=== PATIENT | female | born 1970 | race Hispanic/Latino ===

== ENCOUNTER 2021-06-26 05:36 | Observation (INO) | payer BC ==
[2021-06-25 11:21] VITALS: BP 157/73
[2021-06-25 11:28] LABS: BASOPHILS % (AUTO) 0.6 % (0.0-5.0); EOSINOPHILS % (AUTO) 1.1 % (0.0-8.0); HEMATOCRIT 38.5 % (36-48); LYMPHOCYTES % (AUTO) 35.2 % (21.0-51.0); MEAN CORPUSCULAR HEMOGLOBIN 29.9 pg (27.0-33.0); MEAN CORPUSCULAR VOLUME 90.6 fL (79-99); MONOCYTES % (AUTO) 5.5 % (3.0-13.0); NEUTROPHILS % (AUTO) 57.5 % (40.0-77.0); PLATELET COUNT (AUTO) 371 K/uL (130-400); RED BLOOD CELL COUNT(AUTO) 4.25 MIL/uL (4.00-5.50); RED CELL DISTRIBUTION WIDTH 12.5 % (11.0-15.5)
[2021-06-26] VITALS (24 sets, daily range): BP systolic 116–131; BP diastolic 60–73
[~2021-06-26] VITALS: Ht 154.9 cm; Wt 67.0 kg
[~2021-06-26 05:36] MED LIST: LOSA50TA64 PO
[2021-06-26] MEDS: CEFAZOLIN SODIUM 1 GM VIAL IVP SCH ×2 (06:00→07:55)
[2021-06-26] MEDS ORDERED: LIDOCAINE PF 100MG/5ML (2%) SYRINGE 5ML ONE (07:33)
[2021-06-26] MEDS ORDERED: ROCURONIUM 10MG/1ML SYR 10 MG/ML ML ONE (07:33)
[2021-06-26] MEDS ORDERED: PROPOFOL 10 MG/ML 20ML VIAL IV ONE (07:33)
[2021-06-26] MEDS ORDERED: SUCCINYLCHOLINE 200MG/10ML SYR ONE (07:33)
[2021-06-26] MEDS ORDERED: FENTANYL CITRATE PF 50 MCG/1 ML 2ML VIAL ONE (07:34)
[2021-06-26] MEDS ORDERED: EPHEDRINE SULFATE 50 MG/ML AMPULE ONE (08:10)
[2021-06-26] MEDS: LACTATED RINGERS 1000ML 1,000 ML IV SCH ×4 (08:44→13:32)
[2021-06-26] MEDS ORDERED: ONDANSETRON 4MG INJ ONE (09:36)
[2021-06-26] MEDS ORDERED: NEOSTIGMINE 5MG/5ML SYR IV ONE (09:37)
[2021-06-26] MEDS ORDERED: GLYCOPYRROLATE 1 MG/5 ML SYRINGE ONE (09:37)
[2021-06-26] MEDS ORDERED: MEPERIDINE-PF 25 MG/ML SYG ONE ×3 (09:37→10:24)
[2021-06-26] MEDS ORDERED: SUGAMMADEX SODIUM 200 MG/2 ML VIAL IV ONE (09:56)
[2021-06-26] MEDS ORDERED: ACETAMINOPHEN WITH CODEINE 1 TAB TAB PO PRN (11:30)
[2021-06-26] MEDS ORDERED: MEPERIDINE-PF 75 MG/ML SYG IM PRN (11:30)
[2021-06-26] MEDS ORDERED: BISACODYL 10 MG SUPP.RECT RC PRN (11:30)
[2021-06-26] MEDS ORDERED: ONDANSETRON 4MG INJ IVP PRN (11:30)
[2021-06-26] MEDS ORDERED: PROMETHAZINE HCL 25 MG/ML 1ML AMPULE IM PRN ×2 (11:30)
[2021-06-26] MEDS ORDERED: IBUPROFEN 600 MG TABLET PO PRN (11:30)
[2021-06-26] MEDS: DEXTROSE 5 %-0.45 % NACL 1,000 ML IV PRN ×2 (11:52→19:09)
[2021-06-27] MEDS ORDERED: ACETAMINOPHEN WITH CODEINE 1 TAB TAB PO PRN ×2 (02:30→03:00)
[2021-06-27] MEDS ORDERED: IBUPROFEN 800 MG TAB PO PRN (02:30)
[2021-06-27] MEDS ORDERED: HYDROCODONE/ACETAMINOPHEN 5/325 MG TAB PO PRN ×2 (02:30→03:00)
[2021-06-27] MEDS: DEXTROSE 5 %-0.45 % NACL 1,000 ML IV PRN (02:39)
[2021-06-27 03:39] VITALS: BP 123/76
[2021-06-27 06:54] LABS: HEMATOCRIT 34.7 % (36-48); MEAN CORPUSCULAR HEMOGLOBIN 29.9 pg (27.0-33.0); MEAN CORPUSCULAR HGB CONC 33.1 g/dL (32.0-36.0); MEAN CORPUSCULAR VOLUME 90.4 fL (79-99); RED BLOOD CELL COUNT(AUTO) 3.84 MIL/uL (4.00-5.50); RED CELL DISTRIBUTION WIDTH 12.5 % (11.0-15.5); WHITE BLOOD COUNT (AUTO) 11.8 K/uL (4.8-10.8)
[2021-06-27 08:00] VITALS: BP 121/69
[2021-06-27] MEDS: DOCUSATE SODIUM 100 MG CAP PO PRN ×2 (08:58→20:43)
[2021-06-27] MEDS: SIMETHICONE 80 MG TAB.CHEW PO PRN ×2 (08:58→16:56)
[2021-06-27] MEDS: NITROFURANTOIN MONOHYD/M-CRYST 100 MG CAPSULE PO SCH ×2 (08:59→20:43)
[2021-06-27 11:52] VITALS: BP 117/73
[2021-06-27 16:00] VITALS: BP 133/74
[2021-06-27] MEDS: IBUPROFEN 800 MG TAB PO PRN (16:56)
[2021-06-27 19:48] VITALS: BP 143/76
[2021-06-27 23:22] VITALS: BP 110/57
[2021-06-28 03:19] VITALS: BP 121/70
[2021-06-28] MEDS: IBUPROFEN 800 MG TAB PO PRN (06:19)
[2021-06-28 08:00] VITALS: BP 126/77
[2021-06-28] MEDS: NITROFURANTOIN MONOHYD/M-CRYST 100 MG CAPSULE PO SCH (09:12)
[2021-06-28] MEDS: SIMETHICONE 80 MG TAB.CHEW PO PRN (09:12)
[2021-06-28] MEDS: DOCUSATE SODIUM 100 MG CAP PO PRN (09:12)
[2021-06-28 11:50] VITALS: BP 114/55
== END 2021-06-28 11:40 | disposition home or self-care (01) ==
LOC: DAH 05:36 → DAHIP 05:37 → WSH 11:00
PROVIDERS: ADMIT Obstetrics & Gynecology; ATTEND Obstetrics & Gynecology
DX: N81.3 Complete uterovaginal prolapse (principal); Z20.822 Contact with and (suspected) exposure to COVID-19; N39.3 Stress incontinence (female) (male); K46.9 Unspecified abdominal hernia without obstruction or gangrene; E78.5 Hyperlipidemia, unspecified; I10 Essential (primary) hypertension; Z90.710 Acquired absence of both cervix and uterus; Z79.899 Other long term (current) drug therapy
CPT/HCPCS: 36415 ×2; 51040; 57250; 57288; 58263; 85025; 85027; 86850; 86900; 86901; 87635; 96372; A4215; A4221; A4222; A4223; A4344; A4510; A4600; A4606; A4663; A4930; C1771; C9803; G0378 ×52; G0379; J0330; J0690; J2001; J2175 ×4; J2405; J2550; J2704; J2710; J3010; J3490 ×2; J7120